=== PATIENT | male | born 2000 | race Caucasian/White ===

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

== ENCOUNTER 2019-04-20 18:39 | Emergency (ER) | payer MEDICAID ==
[~2019-04-20] VITALS: Ht 172.7 cm; Wt 121.6 kg
[2019-04-20 18:43] VITALS: Ht 172.7 cm; Wt 121.6 kg
[2019-04-20 21:00] LABS: BASOPHIL % 1.3 % (0-2); PLATELET COUNT 211 x10^3mcL (130-400); RED CELL DISTRIBUTION WIDTH 12.8 % (11.5-14.5)
[2019-04-20 21:06] LABS: AMPHETAMINE QUAL UR NONE DETECTED (See below)
[2019-04-20 21:18] LABS: CALCIUM 8.3 mg/dL (8.5-10.1); CARBON DIOXIDE 28.7 mmol/L (21-32); CHLORIDE SERUM 106 mmol/L (98-107); GFR1 > 60 mL/min; GLUCOSE SERUM 109 mg/dL (74-106); POTASSIUM SERUM 3.8 mmol/L (3.5-5.1); SODIUM SERUM 143 mmol/L (136-145)
[2019-04-20 21:23] LABS: ALBUMIN 3.7 g/dL (3.4-5.0); ALKALINE PHOSPHATASE 97 U/L (46-116); ALT/SGPT 43 U/L (16-63); AST/SGOT 18 U/L (15-37); BILIRUBIN TOTAL 0.37 mg/dL (0.20-1.00); TOTAL PROTEIN, SERUM 7.5 g/dL (6.4-8.2)
[2019-04-20 22:32] VITALS: BP 122/83
== END 2019-04-20 22:32 | disposition home or self-care (01) ==
LOC: ED 18:39
PROVIDERS: Emergency Medicine
DX: J02.9 Acute pharyngitis, unspecified (principal); R11.10 Vomiting, unspecified
CPT/HCPCS: 36415; J1100; J1885; Q0092

== ENCOUNTER 2019-05-09 20:08 | Emergency (ER) | payer MEDICAID ==
[~2019-05-09] VITALS: Ht 170.2 cm; Wt 119.7 kg
[2019-05-09 20:24] VITALS: Ht 170.2 cm; Wt 119.7 kg
[2019-05-09 21:35] LABS: BASOPHIL % 0.5 % (0-2); PLATELET COUNT 220 x10^3mcL (130-400); RED CELL DISTRIBUTION WIDTH 12.7 % (11.5-14.5)
[2019-05-09 21:55] LABS: CALCIUM 8.4 mg/dL (8.5-10.1); CARBON DIOXIDE 29.2 mmol/L (21-32); CHLORIDE SERUM 105 mmol/L (98-107); CREATININE SERUM 0.9 mg/dL (0.7-1.3); GFR1 > 60 mL/min; GLUCOSE SERUM 87 mg/dL (74-106); POTASSIUM SERUM 4.2 mmol/L (3.5-5.1); SODIUM SERUM 142 mmol/L (136-145)
[2019-05-09 21:59] LABS: ALKALINE PHOSPHATASE 105 U/L (46-116); ALT/SGPT 60 U/L (16-63); AST/SGOT 27 U/L (15-37); BILIRUBIN TOTAL 0.6 mg/dL (0.20-1.00); LIPASE 152 IU/L (73-393); TOTAL PROTEIN, SERUM 7.5 g/dL (6.4-8.2)
[2019-05-09 22:16] VITALS: BP 117/69
== END 2019-05-09 22:26 | disposition home or self-care (01) ==
LOC: ED 20:08
PROVIDERS: Emergency Medicine
DX: K21.9 Gastro-esophageal reflux disease without esophagitis (principal); R06.00 Dyspnea, unspecified
CPT/HCPCS: 36415

== ENCOUNTER 2020-04-03 14:20 | Emergency (ER) | payer OTHER ==
[~2020-04-03] VITALS: Ht 172.7 cm; Wt 123.8 kg
[2020-04-03 14:36] VITALS: Ht 172.7 cm; Wt 123.8 kg
[2020-04-03 15:07] VITALS: BP 150/81
== END 2020-04-03 15:07 | disposition home or self-care (01) ==
LOC: ED 14:20
DX: L03.115 Cellulitis of right lower limb (principal)
CPT/HCPCS: 82962; J0696

== ENCOUNTER 2020-04-05 14:26 | Emergency (ER) | payer OTHER ==
[~2020-04-05] VITALS: Ht 172.7 cm; Wt 123.8 kg
[2020-04-05 14:55] VITALS: Ht 172.7 cm; Wt 123.8 kg
[2020-04-05 15:25] LABS: BASOPHIL % 0.9 % (0-2); PLATELET COUNT 212 x10^3mcL (130-400); RED CELL DISTRIBUTION WIDTH 13.3 % (11.5-14.5)
[2020-04-05 15:38] LABS: CALCIUM 9.4 mg/dL (8.5-10.1); CARBON DIOXIDE 30.5 mmol/L (21-32); CHLORIDE SERUM 98 mmol/L (98-107); CREATININE SERUM 1.1 mg/dL (0.7-1.3); GFR1 > 60 mL/min; GLUCOSE SERUM 110 mg/dL (74-106); POTASSIUM SERUM 3.6 mmol/L (3.5-5.1); SODIUM SERUM 134 mmol/L (136-145)
[2020-04-05 15:42] LABS: ALKALINE PHOSPHATASE 97 U/L (46-116); ALT/SGPT 111 U/L (16-63); AST/SGOT 71 U/L (15-37); BILIRUBIN TOTAL 0.5 mg/dL (0.20-1.00); C REACTIVE PROTEIN 11.7 mg/dL (<=0.9)
[2020-04-05 15:43] LABS: TOTAL PROTEIN, SERUM 8.4 g/dL (6.4-8.2)
[2020-04-05 18:06] VITALS: BP 131/68
== END 2020-04-05 18:08 | disposition left against medical advice (07) ==
LOC: ED 14:26
PROVIDERS: Student in an Organized Health Care Education/Training Program
DX: L02.611 Cutaneous abscess of right foot (principal); L03.115 Cellulitis of right lower limb; R50.9 Fever, unspecified
CPT/HCPCS: J0690; J1885; J2001; J7030; Q0092